=== PATIENT | male | born 1995 | race Caucasian/White ===

== ENCOUNTER 2017-09-02 07:57 | Emergency (ER) | payer SELFPAY ==
[~2017-09-02] VITALS: Ht 190.5 cm; Wt 96.2 kg
--- NOTE | 2017-09-02 08:00 | ER Report ---
History and Physical Time Seen By MD: 07:59 HPI/ROS CC: Chest pain HPI: 22-year-old male with a negative past medical history presents to the emergency Department per POV. Patient has a 2 day history of worsening chest pain. Mainly in the left anterior radiating into his back sharp in nature and reproducible with deep breathing. She is taking shallow breaths secondary to the pain. Stabbing in nature and intermittent. He is rating it as a 9 out of 10. There are no alleviating factors. He is not taking any NSAIDs. Sitting up makes it feel somewhat better. She denies any nausea vomiting, fever, palpitations, diaphoresis, chest pressure. He has not had these symptoms before. No sick contacts. ROS: 12 point review of systems essentially negative other than what's mentioned in history of present illness. NURSES AND OLD MEDICAL RECORDS: Reviewed PMH: Reviewed SURGICAL HX: Reviewed FAMILY HX: Noncontributory SOCIAL HX: He denies smoking alcohol or illicit drugs. VITAL SIGNS: Reviewed CONSTITUTIONAL: 22-year-old male in moderate distress. PHYSICAL EXAM: HEENT: Pupils equal round reactive to light and accommodate, EOMI, tympanic membranes pearly white umbo present with good light reflex. Lips dry mucous membranes moist gums nonbleeding uvula midline and rises equally with phonation, oropharynx noninjected, teeth intact. NECK: Neck supple, thyroid not appreciated, anterior and posterior cervical lymphadenopathy not appreciated. Trachea midline and rises equally with phonation. CARDIAC: S1-S2 regular rate rhythm no murmurs rubs or gallops. LUNGS: Lungs clear bilaterally posteriorly in all zamarripa. Good air movement. ABDOMEN: Abdomen soft, nondistended, bowel sounds active in all 4 quadrants, no bruits noted, no CVA tenderness. MUSCULOSKELETAL: Strength 5 out of 5 x 4 extremities, no deformities noted. NEUROLOGIC: Patient alert and oriented by 3 Allergies: Coded Allergies: No Known Drug Allergies (Unverified , 09/02/17) Home Meds Active Scripts Azithromycin (ZITHROMAX) 250 Mg Tablet, 0 PO QDAY, #6 TAB Prov:BLESSING BENEDICT MD 09/02/17 Prednisone 10 Mg Tab (PREDNISONE 10 MG TAB) 10 Mg Tablet, 50 MG PO QDAY, #47 TAB 50 mg by mouth daily for 3 days then 40 mg by mouth daily for 3 days then 30 mg by mouth daily for 3 days then 20 mg by mouth daily for 3 days then 10 mg by mouth daily for 3 days then 5 mg by mouth daily for 3 days. Prov:BLESSING BENEDICT MD 09/02/17 Constitutional Vital Sign - Last 24 Hours 09/02/17 09/02/17 09/02/17 09/02/17 08:00 08:01 08:02 08:28 Temp 97.5 Pulse 70 55 66 Resp 16 20 16 B/P (MAP) 163/107 (125) Pulse Ox 95 96 09/02/17 09/02/17 09/02/17 08:28 08:30 08:36 Pulse 72 72 Resp 14 16 B/P (MAP) 132/70 (90) Pulse Ox 92 91 O2 Delivery Room Air Medical Decision Making Data Points Result Diagram: 09/02/17 0810 09/02/17 0810 Laboratory Hematology Test 09/02/17 08:10 Red Blood Count 5.71 M/uL (4.00-5.60) Mean Corpuscular Volume 90.8 fL (80.0-96.0) Mean Corpuscular Hemoglobin 31.9 pg (26.0-33.0) Mean Corpuscular Hemoglobin Concent 35.2 g/dL (32.0-36.0) Red Cell Distribution Width 12.8 % (11.5-14.5) Mean Platelet Volume 10.3 fL (7.2-11.1) Neutrophils (%) (Auto) 65.4 % (39.4-72.5) Lymphocytes (%) (Auto) 24.8 % (17.6-49.6) Monocytes (%) (Auto) 6.9 % (4.1-12.4) Eosinophils (%) (Auto) 2.5 % (0.4-6.7) Basophils (%) (Auto) 0.4 % (0.3-1.4) Nucleated RBC Relative Count (auto) 0.1 /100WBC Neutrophils # (Auto) 8.9 K/uL (2.0-7.4) Lymphocytes # (Auto) 3.4 K/uL (1.3-3.6) Monocytes # (Auto) 0.9 K/uL (0.3-1.0) Eosinophils # (Auto) 0.3 K/uL (0.0-0.5) Basophils # (Auto) 0.1 K/uL (0.0-0.1) Nucleated RBC Absolute Count (auto) 0.01 K/uL Peripheral Blood Smear No Y/N Sodium Level 140 mmol/L (137-145) Potassium Level 4.2 mmol/L (3.5-5.0) Chloride Level 103 mmol/L (98-107) Carbon Dioxide Level 26 mmol/L (22-30) Blood Urea Nitrogen 14 mg/dl (9-21) Creatinine 0.80 mg/dl (0.66-1.25) Glomerular Filtration Rate Calc > 60.0 Random Glucose 90 mg/dl (75-110) Calcium Level 9.4 mg/dl (8.4-10.2) Total Bilirubin 0.9 mg/dl (0.2-1.3) Aspartate Amino Transf (AST/SGOT) 32 U/L (0-35) Alanine Aminotransferase (ALT/SGPT) 41 U/L (0-56) Alkaline Phosphatase 89 U/L (0-126) Troponin I < 0.012 ng/ml C-Reactive Protein 0.5 mg/dl (<1.0) Total Protein 7.9 gm/dl (6.3-8.2) Albumin 4.4 g/dl (3.5-5.0) Chemistry Test 09/02/17 08:10 White Blood Count 13.6 k/uL (4.5-11.0) Red Blood Count 5.71 M/uL (4.00-5.60) Hemoglobin 18.2 g/dL (14.0-18.0) Hematocrit 51.8 % (42.0-52.0) Mean Corpuscular Volume 90.8 fL (80.0-96.0) Mean Corpuscular Hemoglobin 31.9 pg (26.0-33.0) Mean Corpuscular Hemoglobin Concent 35.2 g/dL (32.0-36.0) Red Cell Distribution Width 12.8 % (11.5-14.5) Platelet Count 177 K/uL (150-450) Mean Platelet Volume 10.3 fL (7.2-11.1) Neutrophils (%) (Auto) 65.4 % (39.4-72.5) Lymphocytes (%) (Auto) 24.8 % (17.6-49.6) Monocytes (%) (Auto) 6.9 % (4.1-12.4) Eosinophils (%) (Auto) 2.5 % (0.4-6.7) Basophils (%) (Auto) 0.4 % (0.3-1.4) Nucleated RBC Relative Count (auto) 0.1 /100WBC Neutrophils # (Auto) 8.9 K/uL (2.0-7.4) Lymphocytes # (Auto) 3.4 K/uL (1.3-3.6) Monocytes # (Auto) 0.9 K/uL (0.3-1.0) Eosinophils # (Auto) 0.3 K/uL (0.0-0.5) Basophils # (Auto) 0.1 K/uL (0.0-0.1) Nucleated RBC Absolute Count (auto) 0.01 K/uL Peripheral Blood Smear No Y/N Glomerular Filtration Rate Calc > 60.0 Calcium Level 9.4 mg/dl (8.4-10.2) Total Bilirubin 0.9 mg/dl (0.2-1.3) Aspartate Amino Transf (AST/SGOT) 32 U/L (0-35) Alanine Aminotransferase (ALT/SGPT) 41 U/L (0-56) Alkaline Phosphatase 89 U/L (0-126) Troponin I < 0.012 ng/ml C-Reactive Protein 0.5 mg/dl (<1.0) Total Protein 7.9 gm/dl (6.3-8.2) Albumin 4.4 g/dl (3.5-5.0) EKG/Imaging EKG Interpretation Normal sinus rhythm, ventricular rate 65 bpm, IA interval 134 ms, QRS duration 80 ms, QTC 416 ms, QTC 432 ms. No previous ECG to compare. Imaging Chest x-ray: IMPRESSION: Normal chest. ED Course/Re-evaluation ED Course Patient received Toradol 30 mg IV. A liter normal saline. She received a DuoNeb breathing treatment with Solu-Medrol IV. Chest x-ray shows no acute process infiltrates or consolidations. Normal chest. Patient with elevated WBC. Patient will be discharged on Z-Terry and the escalating doses of steroids patient aware of plan and in agreement Patient is much improved with the DuoNeb treatment and Tylenol. Patient will be discharged home on ibuprofen, Z-Terry, prednisone. Follow up with PCP. Patient was instructed to stop smoking. Patient will plan and in agreement. Patient refusing a work release. Re-evaluation Medical decision making includes but not excluded to costochondritis, pleurisy, pneumonia, acute coronary syndrome. Decision to Disposition Date: Sep 02, 2017 Decision to Disposition Time: 09:44 Depart Departure Latest Vital Signs Vital Signs Date Time Temp Pulse Resp B/P (MAP) Pulse Ox O2 Delivery O2 Flow Rate FiO2 09/02/17 08:36 72 16 09/02/17 08:30 132/70 (90) 91 09/02/17 08:28 Room Air 09/02/17 08:01 97.5 Impression: Primary Impression: Pleuritic chest pain Condition: Improved Disposition: HOME OR SELF-CARE New Scripts Azithromycin (ZITHROMAX) 250 Mg Tablet 0 PO QDAY, #6 TAB Prov: BLESSING BENEDICT MD 09/02/17 Prednisone 10 Mg Tab (PREDNISONE 10 MG TAB) 10 Mg Tablet 50 MG PO QDAY, #47 TAB 50 mg by mouth daily for 3 days then 40 mg by mouth daily for 3 days then 30 mg by mouth daily for 3 days then 20 mg by mouth daily for 3 days then 10 mg by mouth daily for 3 days then 5 mg by mouth daily for 3 days. Prov: BLESSING BENEDICT MD 09/02/17 Patient Instructions: Pleurisy (DC) Additional Instructions: You have Pleurisy, Take ibuprofen 600 mg every 6 hours as needed for pain. Take prednisone taper as directed. He had been given Zithromax take as directed. Stop smoking as this is not helping your present condition at present. BLESSING BENEDICT MD Sep 02, 2017 08:00
[2017-09-02] MEDS ORDERED: LR(*) 1000 ML BAG 1,000 ML IV ONE (08:13)
[2017-09-02] MEDS ORDERED: KETOROLAC 30 MG/ML VIAL IVP ONE (08:15)
--- NOTE | 2017-09-02 08:19 | EKG ---
FACILITY: [facility] - [place] PATIENT NAME: MICHELLE SEN : [id number] MR: [id number] V: [id number] EXAM DATE: ORDERING PHYSICIAN: BLESSING BENEDICT TECHNOLOGIST: GUCCI Wick Reason : CHEST PAIN Blood Pressure : / mmHG Vent. Rate : 065 BPM Atrial Rate : 065 BPM P-R Int : 134 ms QRS Dur : 088 ms QT Int : 416 ms P-R-T Axes : 061 076 062 degrees QTc Int : 432 ms Sinus rhythm Poor R wave progression anterior leads Artifact in all leads - repeat if needed No previous ECGs available Confirmed by PRATIK PINEDA [id number] on 09/02/2017 12:52:10 PM Referred By: JAK Confirmed By:PRATIK PINEDA
[2017-09-02] MEDS ORDERED: methylPREDNIS SUCC 125 MG/2ML IVP ONE (08:25)
[2017-09-02] MEDS ORDERED: ALBUTEROL/IPRATROPIUM 3 ML NEB NEB ONE (08:25)
[2017-09-02 08:31] LABS: PLATELET COUNT, AUTOMATED 177 K/uL (150-450)
--- NOTE | 2017-09-02 09:15 | RADIOLOGY IMAGING REPORT ---
FACILITY: [facility] PATIENT NAME: Ruddy Dooley : 1995 MR: [id number] V: [id number] EXAM DATE: ORDERING PHYSICIAN: BLESSING BENEDICT TECHNOLOGIST: Location: [facility] Patient: Ruddy Dooley : 1995 Visit/Account:[id number] Date of Sevice: 09/02/2017 CHEST PA AND LAT COMPARISON: None. HISTORY: Chest Pain FINDINGS: CARDIAC/VASC: No cardiac silhouette abnormality or cardiomegaly. Unremarkable pulmonary vasculatu re. MEDIASTINUM: No visible mass or adenopathy. LUNGS/PLEURA: No pneumothorax. No significant pulmonary parenchymal abnormalities. No effusion or p leural thickening. BONES: No fracture or visible bony lesion. OTHER:Negative. IMPRESSION: Normal chest. Report Dictated By: Wicho Dang at 09/02/2017 9:11 AM Report E-Signed By: Wicho Dang at 09/02/2017 9:12 AM WSN:[id number]
[2017-09-02] MEDS ORDERED: AZIT-1 PO (09:46)
[2017-09-02] MEDS ORDERED: PRED-1 PO (09:46)
[2017-09-02 10:00] VITALS: BP 114/89
== END 2017-09-02 10:07 | disposition home or self-care (01) ==
LOC: ER 08:01
DX: R07.81 Pleurodynia (principal)
CPT/HCPCS: 71046; 84484; 85025; 85651; 86140; 93005; 94640; 96374; 96375; 99284; J1885; J2930; 82040; 82247; 82310; 82374; 82435; 82565; 82947; 84075; 84132; 84155; 84295; 84450; 84460; 84520